=== PATIENT | female | born 2000 | race Caucasian/White ===

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

== ENCOUNTER 2022-07-17 15:27 | Outpatient (REF) | payer MEDICAID, SELFPAY ==
[2022-07-19 10:21] LABS: COVID-19 RT-PCR UVMMC Result Negative (Negative)
== END 2022-07-17 15:28 | disposition home or self-care (01) ==
LOC: LBN 15:27
PROVIDERS: PCP Nurse Practitioner Family; Visit Provider Physician Assistant Medical
DX: J02.9 Acute pharyngitis, unspecified (principal); Z20.822 Contact with and (suspected) exposure to COVID-19
CPT/HCPCS: U0003; 87070

== ENCOUNTER 2025-06-29 22:12 | Outpatient (REF) | payer OTHER, SELFPAY | END 2025-06-29 22:13 | disposition home or self-care (01) | LOC: LBN 22:12 | PROVIDERS: PCP Student in an Organized Health Care Education/Training Program; Visit Provider Physician Assistant Medical | DX: J02.9 Acute pharyngitis, unspecified (principal) | CPT/HCPCS: 87070 ==